=== PATIENT | female | born 1955 | race Caucasian/White ===

== ENCOUNTER 2022-07-27 03:55 | Inpatient (IN) | payer MEDICARE, SELFPAY ==
[2022-07-27] VITALS (17 sets, daily range): BP systolic 102–146; BP diastolic 57–79; PULSE 75–115; RESP 14–24; TEMP 36.4–36.9; O2SAT 88–95
--- NOTE | 2022-07-27 04:10 | XRR_ITS ---
PROCEDURE INFORMATION: Exam: XR Chest Exam date and time: 07/27/2022 4:34 AM Age: 66 years old Clinical indication: Shortness of breath; Additional info: SOB TECHNIQUE: Imaging protocol: Radiologic exam of the chest. Views: 1 view. COMPARISON: No relevant prior studies available. FINDINGS: Lungs: There is a background of emphysema and mild pulmonary fibrosis. Pleural spaces: Unremarkable. No pleural effusion. No pneumothorax. Heart/Mediastinum: Unremarkable. No cardiomegaly. Bones/joints: Unremarkable. XR/XR chest 1V portable [id number] IMPRESSION: 1. Background of emphysema pulmonary fibrosis. 2. There are no acute chest findings.
[2022-07-27] MEDS: ipratropium-albuterol 3 mL Neb INHALATION ×4 (04:15→19:33)
[2022-07-27 04:31] LABS: ABG PCO2 52.7 mmHg (35-45); ABG PH Result 7.36 (7.35-7.45); Arterial Blood Gas Hematocrit 47.8 % (37-47); Base Excess ABG 2.8 mmol/L (-2.0-2.0); Blood Gas Sample Site Brachial, right; Blood Gas Sample Type Arterial; HCO3 ABG 29.7 mmol/L (22-26); Oxygen Device NC; PO2 ABG 61.8 mmHg (80.0-100.0)
--- NOTE | 2022-07-27 04:43 | ECG_ITS ---
[facility] Test Date: 2022-07-27 Pat Name: Elisha Hardy Department: Room: Gender: Female Court Worker: : 1955 Requested By: Martinez Ansari Order Number: [id number] Reading MD: NELLIE CUEVA Measurements Intervals [place] Rate: 100 P: 79 PA: 153 QRS: 81 QRSD: 76 T: 64 QT: 328 QTc: 425 Interpretive Statements SINUS TACHYCARDIA POSSIBLE LEFT ATRIAL ENLARGEMENT [-0.1mV P-WAVE IN V1/V2] MINIMAL ST DEPRESSION [0.025+ mV ST DEPRESSION] ABNORMAL RHYTHM ECG No previous ECG available for comparison Electronically Signed On 07-28-2022 3:07:38 CDT by NELLIE CUEVA [id number]
[2022-07-27 04:45] LABS: Basophils % 0.6 %; Eosinophils # 0.3 10^3/uL (0.0-0.8); Eosinophils % 3.7 %; Hematocrit 46.6 % (37.0-47.0); Hemoglobin 15.1 g/dL (11.5-15.3); Lymphocytes % 15.2 %; Mean Corpuscular HGB Conc 32.4 g/dL (30.0-36.0); Mean Corpuscular Hemoglobin 31.3 pg (28.0-34.0); Mean Corpuscular Volume 96.5 fl (81-99); Mean Platelet Volume 10.4 fL (7.4-10.4); Monocytes # 0.3 10^3/uL (0.2-0.9); Monocytes % 3.9 %; Neutrophils # 5.22 10^3/uL (1.8-7.7); Neutrophils % 76.3 %; Nucleated Red Blood Cells % 0 %; Platelet Count 253 10^3/cmm (130-400); Red Blood Count 4.83 10^6/uL (4.1-5.3); White Blood Count 6.8 10^3/uL (4.0-10.0)
--- NOTE | 2022-07-27 04:51 | W.ED.SOB ---
HPI - SOB/Dyspnea General: Chief Complaint: Shortness of Breath/Dyspnea Stated Complaint: SOB Time Seen by Provider: 07/27/22 03:59 Source: patient History of Present Illness: HPI Narrative: 66-year-old female smoker. She says she quit a week ago. She presents with wheezing and shortness of breath, acutely worsening this morning. She says that she has not been able to walk across her home to the kitchen for about a month because of shortness of breath. She was struggling for air at home called an ambulance. MD elicited complaint: shortness of breath and cough Pertinent past history: COPD Onset (ago): hour(s) Context: recent illness, occurred during exertion and choking/aspiration Exacerbating factors: lying flat and exertion Relieving factors: oxygen and bronchodilators Known history of: COPD Associated symptoms: Reports chest congestion, chest pain and cough; Deny abdominal pain or nausea Treatment prior to arrival: oxygen and bronchodilator Review of Systems Card: Reports: chest pain Resp: Reports: chest congestion GI: Denies: abdominal pain or nausea PFSH ED PFSH: Medical History (Updated 07/27/22 @ 05:57 by Quinn Quiñones MD) Anxiety Cardiac arrhythmia Hypoglycemia Surgical History (Updated 07/27/22 @ 05:57 by Quinn Quiñones MD) Hx of tonsillectomy Hx of tubal ligation Physical Exam Const: GENERAL APPEARANCE: anxious, ill appearing (Mildly) and frail appearing (Mildly) HENMT: COMMON NORMALS: normocephalic, atraumatic and Normal external nose present HEAD & SCALP: normocephalic and atraumatic FACE & SINUS: normal facial exam and face symmetric NOSE: Normal external nose present Eye: COMMON NORMALS: Equal, round and reactive pupils present and EOMs intact bilaterally PUPIL: Yes Equal, round and reactive pupils present Neck/C-Spine: GENERAL: Yes trachea midline Chest: CHEST: Yes Symmetrical chest wall rise Resp: COMMON NORMALS: No retractions, No use of accessory muscles and clear to auscultation bilaterally AUSCULTATION: clear to auscultation bilaterally Cardio: COMMON NORMALS: regular rate and regular rhythm RATE: regular rate RHYTHM: regular rhythm GI: COMMON NORMALS: Normal to inspection, nondistended, normoactive bowel sounds present Extremity: COMMON NORMALS: no pedal edema Neuro: SHIV COMA SCALE: document GCS findings Mingus coma scale eye opening: Spontaneous Shiv coma scale verbal response: Orientated Mingus coma scale motor response: Obey commands Shiv coma scale total score: 15 SENSORY EXAM: Yes extremities (intact) Psych: COMMON NORMALS: speech normal SPEECH: Yes normal speech Skin: COMMON NORMALS: no rashes or lesions noted GENERAL SKIN EXAM: no rashes or lesions noted Course Consultations: Consultation #1: demarco Vital Signs: Vital signs: Vital Signs Temperature 97.5 F L 07/27/22 03:56 Pulse Rate 87 07/27/22 05:30 Respiratory Rate 16 07/27/22 05:30 Blood Pressure 110/65 07/27/22 05:30 Pulse Oximetry 92 07/27/22 05:30 Oxygen Delivery Me thod 07/27/22 04:21 Oxygen Flow Rate 2 07/27/22 04:21 MDM - SOB/Dyspnea Medical Decision Making Patient is somewhat improved after breathing treatment, however on 2 L still satting only 90 to 91%. Blood gas on 2 L shows a PO2 60 with CO2 retention and PCO2 of 53. CBC is normal. pH is 7.36 Chest x-ray is negative for infiltrate Patient had 125 mg of Solu-Medrol in route in the ambulance. She had also received a breathing treatment. She has received DuoNeb here. She still having trouble. She is oxygen dependent on 2 L to get her above 88%. I think she would benefit from observation with continue steroids and nebulizer treatments. Her PCO2 is elevated. Lab Data 07/27/22 04:36 07/27/22 04:36 Labs/Radiology: Radiology Impressions Chest X-Ray 07/27/22 04:10 IMPRESSION: 1. Background of emphysema pulmonary fibrosis. 2. There are no acute chest findings. Laboratory Results WBC 6.8 10^3/uL (4.0-10.0) 07/27/22 04:36 RBC 4.83 10^6/uL (4.1-5.3) 07/27/22 04:36 Hgb 15.1 g/dL (11.5-15.3) 07/27/22 04:36 Hct 46.6 % (37.0-47.0) 07/27/22 04:36 MCV 96.5 fl (81-99) 07/27/22 04:36 MCH 31.3 pg (28.0-34.0) 07/27/22 04:36 MCHC 32.4 g/dL (30.0-36.0) 07/27/22 04:36 RDW 13.0 % (12.1-15.1) 07/27/22 04:36 Plt Count 253 10^3/cmm (130-400) 07/27/22 04:36 MPV 10.4 fL (7.4-10.4) 07/27/22 04:36 Neut % (Auto) 76.3 % 07/27/22 04:36 Lymph % (Auto) 15.2 % 07/27/22 04:36 [place] % (Auto) 3.9 % 07/27/22 04:36 Eos % (Auto) 3.7 % 07/27/22 04:36 Baso % (Auto) 0.6 % 07/27/22 04:36 Neut # (Auto) 5.22 10^3/uL (1.8-7.7) 07/27/22 04:36 Lymph # (Auto) 1.0 10^3/uL (0.8-4.8) 07/27/22 04:36 [place] # (Auto) 0.3 10^3/uL (0.2-0.9) 07/27/22 04:36 Eos # (Auto) 0.3 10^3/uL (0.0-0.8) 07/27/22 04:36 Baso # (Auto) 0.0 10^3/uL (0.0-0.1) 07/27/22 04:36 Nucleated RBC % (auto) 0 % 07/27/22 04:36 Nucleated RBCs # 0.0 /100WBC 07/27/22 04:36 Specimen Type Arterial 07/27/22 04:19 Sample Site Brachial, right 07/27/22 04:19 ABG pH 7.36 (7.35-7.45) 07/27/22 04:19 ABG pCO2 52.7 mmHg (35-45) H 07/27/22 04:19 ABG pO2 61.8 mmHg (80.0-100.0) L 07/27/22 04:19 ABG HCO3 29.7 mmol/L (22-26) H 07/27/22 04:19 ABG Base Excess 2.8 mmol/L (-2.0-2.0) H 07/27/22 04:19 Henry Test N/a 07/27/22 04:19 Hematocrit 47.8 % (37-47) H 07/27/22 04:19 O2 Delivery Device Nc 07/27/22 04:19 O2 Liters/Min 2.0 % 07/27/22 04:19 FiO2 28.0 % 07/27/22 04:19 Transfer Station Operator ID Alewe 07/27/22 04:19 Sodium 133 mmol/L (136-145) L 07/27/22 04:36 Potassium 4.5 mmol/L (3.5-5.1) 07/27/22 04:36 Chloride 97 mmol/L (98-107) L 07/27/22 04:36 Carbon Dioxide 26 mmol/L (22-29) 07/27/22 04:36 Anion Gap 14.5 (5-19) 07/27/22 04:36 BUN 10 mg/dL (8-23) 07/27/22 04:36 Creatinine 0.5 mg/dL (0.5-0.9) 07/27/22 04:36 GFR Calculation 123.4 mL/min (90-130) 07/27/22 04:36 Glucose 121 mg/dL (65-115) H 07/27/22 04:36 Calculated Osmolality 276 mOsm/kg (285-295) L 07/27/22 04:36 Lactic Acid 0.9 mmol/L (0.5-2.2) 07/27/22 04:36 Calcium 8.9 mg/dL (8.5-10.5) 07/27/22 04:36 Magnesium 1.7 mg/dL (1.7-2.3) 07/27/22 04:36 Total Bilirubin 0.4 mg/dL (0.15-1.2) 07/27/22 04:36 AST 17 U/L (0-32) 07/27/22 04:36 ALT 13 U/L (0-33) 07/27/22 04:36 Alkaline Phosphatase 52 U/L (35-105) 07/27/22 04:36 Troponin T Baseline 7 ng/L (0-10) 07/27/22 04:36 C-Reactive Protein 20.6 mg/L (0.0-4.9) H 07/27/22 04:36 NT-Pro-B Natriuret Pep 66 pg/mL (0-125) 07/27/22 04:36 Total Protein 6.2 g/dL (6.6-8.7) L 07/27/22 04:36 Albumin 3.9 g/dL (3.5-5.2) 07/27/22 04:36 Globulin 2.3 g/dL (1.3-4.6) 07/27/22 04:36 Discharge Plan Discharge Patient Disposition: Placed in Observation Clinical Impression: Acute exacerbation of chronic obstructive airways disease, Respiratory failure with hypoxia and hypercapnia Coding Level of Care Code ED Prep Person for Kushal Flores
[2022-07-27 05:11] LABS: Troponin(5th) Baseline 7 ng/L (0-10)
[2022-07-27 05:12] LABS: Lactic Sepsis W/Reflex 0.9 mmol/L (0.5-2.2)
[2022-07-27 05:21] LABS: Alanine Aminotransferase 13 U/L (0-33); Albumin Level 3.9 g/dL (3.5-5.2); Alkaline Phosphatase 52 U/L (35-105); Aspartate Amino Transferase 17 U/L (0-32); Blood Urea Nitrogen 10 mg/dL (8-23); C Reactive Protein 20.6 mg/L (0.0-4.9); Calcium 8.9 mg/dL (8.5-10.5); Carbon Dioxide 26 mmol/L (22-29); Chloride 97 mmol/L (98-107); Globulin 2.3 g/dL (1.3-4.6); Glomerular Filtration Rate 123.4 mL/min (90-130); Glucose 121 mg/dL (65-115); Magnesium 1.7 mg/dL (1.7-2.3); NT Pro B Type Natriuretic Pept 66 pg/mL (0-125); Osmolality Calculated 276 mOsm/kg (285-295); Sodium 133 mmol/L (136-145); Total Bilirubin 0.4 mg/dL (0.15-1.2); Total Protein 6.2 g/dL (6.6-8.7)
[2022-07-27 05:22] LABS: Anion Gap 14.5 (5-19); Potassium 4.5 mmol/L (3.5-5.1)
--- NOTE | 2022-07-27 06:19 | P.HP_ITS ---
Providers/Chief Complaint Admitting Physician: Quinn Quiñones Chief Complaint: SOB History of Present Illness Pleasant 66-year-old lady with history of COPD, though possibly not formally diagnosed, cigarette smoker who was recently quit, HLD, anxiety presented to the hospital for evaluation due to about a weeks worth of worsening dyspnea especially with exertion, she thought possibly because of quitting smoking, but reports has had a few episodes of fever, chills, malaise, cough productive of thick white sputum which is difficult to bring up. Denies chest pain or pressure. At home found to have dyspnea, tachypnea, diminished air entry, anxiety by EMS, received Solu-Medrol dose in route. In ER received breathing treatment. On room air saturations were found to be 86%, had to be started on 2 L nasal cannula oxygen to maintain low 90s. Has not been previously on oxygen. ABG 7.36/50.7/61.8/29.7 on 2 L. Baseline troponin normal, NT proBNP only 66. Respiratory viral panel has been obtained and pending. Chest x-ray with background emphysema and mild pulmonary fibrosis, no acute findings. Review of Systems Const: Reports: fever(s), chills and malaise ENMT: Denies: throat pain, oral sores or ear or mastoid pain Card: Reports: dyspnea on exertion; Denies: chest pain, edema or pre-syncope Resp: Reports: dyspnea and productive cough; Denies: change in phlegm color or hemoptysis GI: Denies: abdominal pain, nausea, vomiting, diarrhea, constipation, hematochezia or melena : Denies: flank pain, urinary frequency or hematuria Musc: Denies: back pain, joint swelling or joint redness Skin/Breast: Denies: rash or new lesions Neuro: Denies: headache(s), numbness in extremities, weakness in extremities, dizziness, confusion or seizure-like activity Medications/Allergies Home Medications Medication Instructions Recorded Confirmed Last Taken Type No Known Home Medications 07/27/22 07/27/22 Unknown History Allergies Allergy/AdvReac Type Severity Reaction Status Date / Time aspirin Allergy Unknown ALGY-Hives Verified 07/27/22 06:24 PFSH Acute PFSH: Medical History Anxiety Cardiac arrhythmia HLD (hyperlipidemia) Hypoglycemia Surgical History Hx of tonsillectomy Hx of tubal ligation Family History Other CAD (coronary artery disease) Cancer Emphysema lung Hypertension Social History Smoking and tobacco status: current every day smoker cigarettes Quit status (tobacco): has quit using tobacco Lives independently: Yes Household members: none Marital status: Vitals/I&O/Wt Last Vital Signs Temp 97.5 F L 07/27/22 03:56 Pulse 75 07/27/22 06:02 Resp 16 07/27/22 06:02 BP 115/68 07/27/22 06:02 Pulse Ox 92 07/27/22 06:02 O2 Del Method 07/27/22 04:21 O2 Flow Rate 2 07/27/22 04:21 Weight last 48 hrs Weight 47.627 kg Physical Exam Const: COMMON NORMALS: patient oriented x3 and alert GENERAL APPEARANCE: cooperative ORIENTATION/CONSCIOUSNESS: Yes awake HENMT: COMMON NORMALS: oropharynx normal Neck/C-Spine: COMMON NORMALS: no JVD Resp: COMMON NORMALS: normal respiratory effort and clear to auscultation bilaterally AUSCULTATION: wheezes (Mild) and diminished lung sounds Cardio: COMMON NORMALS: no JVD, regular rhythm, S1 normal heart sound present, S2 normal heart sound present and No murmurs present (Cardio) RATE: t achycardic RHYTHM: regular rhythm HEART SOUNDS: S1 normal heart sound present and S2 normal heart sound present GI: COMMON NORMALS: Normal to inspection, nondistended, normoactive bowel sounds present, Soft to palpation and non-tender PALPATION: Yes Soft to palpation Extremity: COMMON NORMALS: no joint enlargement and no pedal edema Neuro: COMMON NORMALS: patient oriented x3 and moves all extremities SENSORIUM/ORIENTATION: Yes alert Skin: COMMON NORMALS: no rashes or lesions noted GENERAL SKIN EXAM: no rashes or lesions noted Data 07/27/22 04:36 07/27/22 04:36 Micro: Microbiology 07/27/22 04:36 Blood Culture - Preliminary Blood SPECIMEN COLLECTED A&P Assessment and plan (1) Respiratory failure with hypoxia and hypercapnia: Saturation 86% on room air. Appears to be secondary to exacerbation of COPD, possibly acute viral illness due to fevers, chills, malaise. Noted respiratory viral pending, please follow-up. Oxygen support, wean down as tolerating. RT to assess and treat. Treat COPD exacerbation as below. Home O2 eval prior to discharge. Additionally noted to possibly mild pulmonary fibrosis on review of chest x-ray. Consider follow-up PFT after discharge, follow-up with pulmonology. Severe exertional dyspnea. BNP noted only 66. Troponin noted normal, follow-up troponin series. (2) Acute exacerbation of chronic obstructive airways disease: Severe exacerbation of COPD with dyspnea, productive cough with purulent appearing sputum, hypoxia. Diminished air entry, wheezing on exam. Mucinex. Flutter valve. Plan Anxiety: Xanax as needed while acutely ill with respiratory failure. Recently quit smoking: Continue to encourage abstinence. Mild hyponatremia: Follow-up chemistry requested. Mild hyperglycemia: Follow-up glucose. Follow-up with PCP. Does not have history of diabetes. Requested home medications to be listed. Please reconcile once available. Discussed with ER physician. Reviewed ER documentation, prior cardiology note in old EMR. Attestations Medical Necessity Statement*: Admission of over 2 midnights anticipated for assessment management of acute respiratory failure, severe COPD exacerbation. Diagnoses Respiratory failure with hypoxia and hypercapnia J96.91; J96.92 Acute exacerbation of chronic obstructive airways disease J44.1
[2022-07-27 06:32] LABS: Adenovirus Not Detected (NOT DETECT); Chlamydia Pneumoniae Not Detected (NOT DETECT); Coronavirus 229E,HKU1,NL63,OC4 Not Detected (NOT DETECT); Human Metapneumovirus Not Detected (NOT DETECT); Human Rhinovirus/Enterovirus Not Detected (NOT DETECT); Influenza A Not Detected (NOT DETECT); Influenza A H1 Not Detected (NOT DETECT); Influenza A H1-2009 Not Detected (NOT DETECT); Influenza A H3 Not Detected (NOT DETECT); Influenza B Not Detected (NOT DETECT); Mycoplasma Pneumoniae Not Detected (NOT DETECT); Parainfluenza Virus Type 1 Not Detected (NOT DETECT); Parainfluenza Virus Type 2 Not Detected (NOT DETECT); Parainfluenza Virus Type 3 Not Detected (NOT DETECT); Parainfluenza Virus Type 4 Not Detected (NOT DETECT); Respiratory Syncytial Virus A Not Detected (NOT DETECT); Respiratory Syncytial Virus B Not Detected (NOT DETECT); SARS-COV-2 Not Detected (NOT DETECT)
--- NOTE | 2022-07-27 06:47 | ECG_ITS ---
[facility] Test Date: 2022-07-27 Pat Name: Elisha Hardy Department: Room: 269 Gender: Female Insurance Assistant: : 1955 Requested By: Martinez Ansari Order Number: [id number] Maria Isabel MD: NELLIE CUEVA Measurements Intervals [place] Rate: 81 P: 77 MN: 154 QRS: 80 QRSD: 69 T: 73 QT: 349 QTc: 407 Interpretive Statements SINUS RHYTHM POSSIBLE LEFT ATRIAL ENLARGEMENT [-0.1mV P-WAVE IN V1/V2] SEPTAL MYOCARDIAL INFARCTION , OF INDETERMINATE AGE [40+ ms Q WAVE IN V1/V2] Compared to ECG 07/27/2022 04:43:52 Myocardial infarct finding now present Sinus tachycardia no longer present ST (T wave) deviation no longer present Electronically Signed On 07-28-2022 3:08:27 CDT by NELLIE CUEVA [id number]
[2022-07-27] MEDS: heparin 5,000 unit/mL INJ 1 mL 5000 UNIT SUBCUT ×2 (08:28→17:44)
[2022-07-27] MEDS: guaiFENesin 600 mg Tablet PO ×2 (08:29→17:45)
[2022-07-27] MEDS: pantoprazole DR 40 mg Tablet PO (08:29)
--- NOTE | 2022-07-27 10:07 | ECG_ITS ---
[facility] Test Date: 2022-07-27 Pat Name: Elisha Hardy Department: Room: 269 Gender: Female Camera Maker: : 1955 Requested By: Martinez Ansari Order Number: [id number] Maria Isabel MD: NELLIE CUEVA Measurements Intervals [place] Rate: 99 P: 70 VT: 152 QRS: 75 QRSD: 82 T: 66 QT: 359 QTc: 461 Interpretive Statements SINUS RHYTHM POSSIBLE LEFT ATRIAL ENLARGEMENT [-0.1mV P-WAVE IN V1/V2] Compared to ECG 07/27/2022 06:47:18 Myocardial infarct finding no longer present Electronically Signed On 07-28-2022 3:08:22 CDT by NELLIE CUEVA [id number]
[2022-07-27] MEDS: sodium chloride 0.9% 500 ML IV (10:36)
--- NOTE | 2022-07-27 10:46 | PC.NURSE ---
PT C/O WEAKNESS AND SOB. PULSE OX AT 86% ON RA. PT PLACED ON 3.5L/NC SATS AT 88-90%.
--- NOTE | 2022-07-27 18:49 | PC.NURSE ---
Bedside report with KIANA Rodriguez.
--- NOTE | 2022-07-27 18:53 | PC.NURSE ---
is asking for something to help her sleep tonight. She said she is wanting something light because she normally doesn't take medications. Dr. Quiñones notified.
[2022-07-27] MEDS: trazodone 50 mg Tablet 25 MG PO (22:16)
[2022-07-28] VITALS (13 sets, daily range): BP systolic 107–129; BP diastolic 60–69; PULSE 82–109; RESP 12–24; TEMP 36.4–36.8; O2SAT 87–97
[2022-07-28] MEDS: ipratropium-albuterol 3 mL Neb INHALATION ×2 (02:34→08:29)
[2022-07-28 05:16] LABS: Eosinophils % 0.6 %; Hematocrit 44.3 % (37.0-47.0); Hemoglobin 14.4 g/dL (11.5-15.3); Lymphocytes # 0.6 10^3/uL (0.8-4.8); Lymphocytes % 9.3 %; Mean Corpuscular HGB Conc 32.5 g/dL (30.0-36.0); Mean Corpuscular Hemoglobin 30.8 pg (28.0-34.0); Mean Corpuscular Volume 94.9 fl (81-99); Mean Platelet Volume 10.7 fL (7.4-10.4); Monocytes # 0.2 10^3/uL (0.2-0.9); Monocytes % 3.3 %; Neutrophils # 5.83 10^3/uL (1.8-7.7); Neutrophils % 86.5 %; Nucleated Red Blood Cells % 0 %; Platelet Count 246 10^3/cmm (130-400); Red Blood Count 4.67 10^6/uL (4.1-5.3); White Blood Count 6.7 10^3/uL (4.0-10.0)
[2022-07-28 05:34] LABS: Anion Gap 10.9 (5-19); Blood Urea Nitrogen 14 mg/dL (8-23); Calcium 9.4 mg/dL (8.5-10.5); Carbon Dioxide 32 mmol/L (22-29); Chloride 101 mmol/L (98-107); Glomerular Filtration Rate 123.4 mL/min (90-130); Glucose 163 mg/dL (65-115); Osmolality Calculated 292 mOsm/kg (285-295); Potassium 4.9 mmol/L (3.5-5.1); Sodium 139 mmol/L (136-145)
[2022-07-28] MEDS: heparin 5,000 unit/mL INJ 1 mL 5000 UNIT SUBCUT ×2 (06:09→18:42)
[2022-07-28] MEDS: pantoprazole DR 40 mg Tablet PO (09:45)
[2022-07-28] MEDS: guaiFENesin 600 mg Tablet PO ×2 (09:46→18:42)
--- NOTE | 2022-07-28 10:43 | PC.CHAP ---
Pastoral Care Encounter/Spiritual Assessment Type of Contact [] Declined fundraising coordinator visit [] Patient/Family/Request visit [] Outpatient visit [] Follow-up visit [] Physician referral [] Code/Alert [x] Routine visit [] Staff referral [] Actively dying [] Patient sleeping [] Family support [] [] Out of room [] Palliative care [] [] Receiving care in room [] Pre-surgical visit [] Trauma [] Long length of stay [] ICU visit [] Other: Relational/Emotional Strength [x] Patient feels connected with others/family/visitors/staff [] Distress [] Loneliness/isolation [] Abandonment Spirituality of Patient [x] Person of Margie [] Attends Congregation of their Margie [x] Believes in Prayer [x] Reads Bible or Confucianism materials [] There are Spiritual issues to be addressed Casting Machine Set Up Operator Interventions [x] Prayer [x] Active listening [] Non-anxious presence [x] Spiritual/emotional support [] Crisis/trauma care [] Spiritual counseling [] Bereavement support [] Provided bereavement packet [] Provided Bible/devotional materials [] Provided toy/stuffed animal, coloring book to patient or family member [] Provided Communion [] Anointing/[place] [] Salvation [x] Completed spiritual assessment [] Other: Impact on Illness or Injury [] Angry [] Fearful [] Anxious [] Often cries [] Exhaustion [] Unable to work [] Unable to attend mormon [] Unable to walk/stand [] Unable to read [] Unable to drive [] Unable to eat/drink [] Unable to sleep [] Unable to be with family [] Patient intubated [] Other: Summary Time spent with patient 5 min
--- NOTE | 2022-07-28 10:49 | USCV_ITS ---
Elisha Hardy Age: 66 Gender: F : 1955 Exam Date: 07/28/2022 11:26 Ordering Phys: Lucas Malloy MD Technologist: Rip Huerta [place] [facility] [place] [facility] [place] Indication: sob, possible hypertension BP: 107 / 60 HR: 105 Rhythm: Sinus Technical Quality: Technically difficult study MEASUREMENTS (Male / Female) Normal Values 2D ECHO LV Diastolic Diameter PLAX 4.1 cm 4.2 - 5.9 / 3.9 - 5.3 cm LV Systolic Diameter PLAX 2.6 cm IVS Diastolic Thickness 0.7 cm 0.6 - 1.0 / 0.6 - 0.9 cm IVS Systolic Thickness 1.3 cm LVPW Diastolic Thickness 1.3 cm 0.6 - 1.0 / 0.6 - 0.9 cm LVPW Systolic Thickness 1.3 cm LVOT Diameter 2.0 cm LV Ejection Fraction 2D Teich 67.4 % LA Diameter 2.7 cm Aorta at Sinotubular Diameter 2.6 cm IVC Diameter 1.4 cm M-MODE Aortic Annulus Diameter 2.7 cm LA Ao Ratio MM 1.1 MV E Point Septal Separation 0.6 cm DOPPLER Right Atrial Pressure 3.0 mmHg PV Peak Velocity 89.0 cm/s RV Acceleration Time 0.1 s RV Ejection Time 0.2 s RV AcT/ET 0.3 FINDINGS Left Ventricle Possibly normal LV size ejection fraction. Segmental wall motion analysis difficult. No gross abnormalities noted. Only subcostal views were obtained. Right Ventricle Possibly normal size ejection fraction. Right Atrium Right atrium not well visualized. Left Atrium Possibly of normal size Mitral Valve No gross abnormalities noted Aortic Valve Thickened aortic valve. Tricuspid Valve No gross abnormalities noted Pulmonic Valve Pulmonic valve not well visualized. Pericardium No pericardial effusion. Aorta Aorta not well visualized. IVC Normal inferior vena cava. CONCLUSIONS Possibly normal LV size ejection fraction. Segmental wall motion analysis difficult. No gross abnormalities noted. Thickened aortic valve. There is no pericardial effusion. There are no intracardiac masses. Technically difficult study because of the poor ultrasonic window. Only subcostal views were obtained Dr Lloyd Gibbs MD [facility] (Electronically Signed) Final Date: 28 July 2022 18:46 S
[2022-07-28] MEDS: levoFLOXacin 750 mg Tablet PO (10:56)
[2022-07-28 11:20] LABS: Add Urine Microscopic? NO; Charge for UA Resulting for Rev
[2022-07-28 11:25] LABS: D Dimer 0.42 ug/mIFEU (0-0.59)
[2022-07-28 11:27] LABS: Bilirubin Urine Neg (Negative); Blood Urine Neg (Negative); Glucose Urine UA 2+ (Normal); Ketones Urine Negative (Negative); Leukocyte Esterase Urine Negative (Negative); Nitrate Urine Negative (Negative); Protein Urine Neg (Negative); Urine Appearance Clear (CLEAR); Urine Color Yellow (Yellow); Urobilinogen Urine Norm (Negative); pH Urine 6 (5-7)
[2022-07-28 11:27] LABS: Thyroid Stimulating Hormone 0.84 uIU/mL (0.27-4.20)
[2022-07-28 11:35] LABS: Procalcitonin 0.02 ng/mL (0-0.5); Vitamin B12 373 pg/mL (232-1245)
[2022-07-28 11:37] LABS: Folate Level 7.8 ng/mL (4.8-37.3)
--- NOTE | 2022-07-28 13:37 | P.PN_ITS ---
Subjective Subjective: Hospital course, labs appreciated. On examination patient sitting comfortably in bed. States he used to smoke regularly the last 1 week and did not have any difficulty in breathing but since stopping her smoking the breathing has been getting worse. She does state on baseline she did get out of breath on minimal exertion previously as well. Denies any nausea, vomiting, headache. Has remained hemodynamically stable and afebrile. Currently on 3 L saturating more than 92%. States goal is to get home without oxygen. Does not want to remain on long-term oxygen. Vitals/I&O/Wt Last Vital Signs Temp 97.6 F 07/28/22 11:48 Pulse 105 H 07/28/22 11:48 Resp 24 H 07/28/22 11:48 BP 110/69 07/28/22 11:48 Pulse Ox 93 07/28/22 11:48 O2 Del Method 07/28/22 11:48 O2 Flow Rate 3 07/28/22 11:48 07/27/22 07/28/22 07/28/22 22:59 06:59 14:59 Intake Total 740 / 1480 440 / 1920 100 / 100 Output Total 1025 / 1025 Balance 740 / 1480 -585 / 895 100 / 100 Weight last 48 hrs Weight 47.945 kg Weight 48.353 kg Weight 47.627 kg Physical Exam Const: COMMON NORMALS: patient oriented x3 and alert GENERAL APPEARANCE: cooperative ORIENTATION/CONSCIOUSNESS: Yes awake HENMT: COMMON NORMALS: oropharynx normal Neck/C-Spine: COMMON NORMALS: no JVD Resp: COMMON NORMALS: normal respiratory effort and clear to auscultation bilaterally AUSCULTATION: clear to auscultation bilaterally, wheezes (Mild) and diminished lung sounds Cardio: COMMON NORMALS: no JVD, regular rhythm, S1 normal heart sound present, S2 normal heart sound present and No murmurs present (Cardio) RATE: tachycardic RHYTHM: regular rhythm HEART SOUNDS: S1 normal heart sound present and S2 normal heart sound present GI: COMMON NORMALS: Normal to inspection, nondistended, normoactive bowel sounds present, Soft to palpation and non-tender PALPATION: Yes Soft to palpation Extremity: COMMON NORMALS: no joint enlargement and no pedal edema Neuro: COMMON NORMALS: patient oriented x3 and moves all extremities SENSORIUM/ORIENTATION: Yes alert Skin: COMMON NORMALS: no rashes or lesions noted GENERAL SKIN EXAM: no rashes or lesions noted Data 07/28/22 04:38 07/28/22 04:38 Micro: Microbiology 07/27/22 19:52 Gram Stain - Final Sputum - Expectorated Sputum 07/27/22 04:36 Blood Culture - Preliminary Blood NEGATIVE TO DATE A&P Assessment and plan (1) Respiratory failure with hypoxia and hypercapnia: Most likely COPD exacerbation. Respiratory viral panel negative. Oxygen supplementation keeping saturation over 90%. Continue with ipratropium, Xopenex every 6 hourly. Add budesonide twice daily. Change Solu-Medrol to 40 mg every 12 hourly. Most likely patient will need to be discharged on slow steroid taper. Check MRSA swab. Sputum culture awaited. Start empirically on oral Levaquin for now. Check echocardiogram to rule out pulmonary hypertension. Will add Lasix accordingly. (2) Acute exacerbation of chronic obstructive airways disease: Severe exacerbation of COPD with dyspnea, productive cough with purulent appearing sputum, hypoxia. Diminished air entry, wheezing on exam. Mucinex. Aggressive pulmonary toilet Plan Anxiety: Xanax as needed while acutely ill with respiratory failure. Recently quit smoking: Continue to encourage abstinence. Offered patient nicotine patch. Mild hyponatremia: Resolved. Mild hyperglycemia: Check A1c. No history of diabetes in the past. Requested home medications to be listed. Please reconcile once available. Analgesia: Tylenol as needed Glycemic control: Not needed. Check A1c. Nutrition: Cardiac diet CODE STATUS: Full code PUD prophylaxis: Protonix DVT prophylaxis: Heparin 5000 every 12 hourly. Discharge planning: Home with caregiver on slow prolonged steroid taper in next 48 hours once patient becomes medically stable. Continue with care at [facility] [place] This documentation was created by [employer] cement grinding mill operator software. Every effort was made to ensure accuracy of cement grinding mill operator. Any obvious errors or omissions should be clarified with the author of the document. Attestations Medical Necessity Statement*: Requires further hospitalization for management of hypoxia in setting of COPD exacerbation Diagnoses Respiratory failure with hypoxia and hypercapnia J96.91; J96.92 Acute exacerbation of chronic obstructive airways disease J44.1
[2022-07-28] MEDS: ipratropium 0.5 mg/2.5 mL Neb INHALATION ×2 (15:48→20:10)
[2022-07-28] MEDS: levalbuterol 0.63 mg/3 mL Neb INHALATION ×2 (15:48→20:10)
[2022-07-28] MEDS: budesonide 0.5 mg/2 mL Neb INHALATION (20:10)
[2022-07-29] MEDS: trazodone 50 mg Tablet 25 MG PO (00:18)
[2022-07-29] MEDS: levalbuterol 0.63 mg/3 mL Neb INHALATION ×3 (03:24→14:06)
[2022-07-29 03:25] VITALS: PULSE 106; RESP 18; O2SAT 93
[2022-07-29] MEDS: ipratropium 0.5 mg/2.5 mL Neb INHALATION ×3 (03:25→14:06)
[2022-07-29 03:41] VITALS: BP 123/68; PULSE 102; RESP 16; TEMP 36.6; O2SAT 93
[2022-07-29 05:43] LABS: Hematocrit 44.1 % (37.0-47.0); Hemoglobin 14.5 g/dL (11.5-15.3); Lymphocytes # 0.8 10^3/uL (0.8-4.8); Lymphocytes % 10.2 %; Mean Corpuscular HGB Conc 32.9 g/dL (30.0-36.0); Mean Corpuscular Hemoglobin 30.8 pg (28.0-34.0); Mean Corpuscular Volume 93.6 fl (81-99); Mean Platelet Volume 10.6 fL (7.4-10.4); Monocytes # 0.3 10^3/uL (0.2-0.9); Monocytes % 3.5 %; Neutrophils # 6.63 10^3/uL (1.8-7.7); Nucleated Red Blood Cells % 0 %; Platelet Count 278 10^3/cmm (130-400); Red Blood Count 4.71 10^6/uL (4.1-5.3); White Blood Count 7.7 10^3/uL (4.0-10.0)
[2022-07-29] MEDS: levoFLOXacin 750 mg Tablet PO (06:03)
[2022-07-29] MEDS: heparin 5,000 unit/mL INJ 1 mL 5000 UNIT SUBCUT (06:04)
[2022-07-29 06:05] LABS: Blood Urea Nitrogen 15 mg/dL (8-23); Calcium 9.7 mg/dL (8.5-10.5); Carbon Dioxide 32 mmol/L (22-29); Chloride 100 mmol/L (98-107); Chol HDL Ratio 3.51 mg/dL (0.0-4.40); Cholesterol 256 mg/dL (0-200); Glomerular Filtration Rate 71.8 mL/min (90-130); Glucose 141 mg/dL (65-115); HDL Cholesterol 73 mg/dL (60-100); LDL Cholesterol Calculated 165 mg/dL (50-129); Osmolality Calculated 293 mOsm/kg (285-295); Sodium 140 mmol/L (136-145); Triglycerides 90 mg/dL (0-150); VLDL Cholestrol Calculation 18 mg/dL (0-30)
[2022-07-29 06:20] LABS: Estmated Average Glucose 114; Hemoglobin A1C 5.6 % (4.0-6.0)
[2022-07-29 08:00] VITALS: BP 117/70; PULSE 101; PULSE 82; RESP 17; RESP 22; TEMP 36.6; O2SAT 96
[2022-07-29] MEDS: budesonide 0.5 mg/2 mL Neb INHALATION (08:05)
[2022-07-29] MEDS: guaiFENesin 600 mg Tablet PO (08:48)
[2022-07-29] MEDS: pantoprazole DR 40 mg Tablet PO (08:48)
--- NOTE | 2022-07-29 10:27 | PM.DCS ---
Discharge Providers Date of Admission: 07/27/22 06:15 Date of Discharge: July 29, 2022 Attending Provider at Admission: Quinn Quiñones Attending Provider at Discharge: Lucas Malloy MD Diagnoses at Discharge Discharge Diagnosis (1) Respiratory failure with hypoxia and hypercapnia: Status: Acute (2) Acute exacerbation of chronic obstructive airways disease: Status: Acute Reason for Visit Reason for Visit: SOB Brief History: History as per HPI: Pleasant 66-year-old lady with history of COPD, though possibly not formally diagnosed, cigarette smoker who was recently quit, HLD, anxiety presented to the hospital for evaluation due to about a weeks worth of worsening dyspnea especially with exertion, she thought possibly because of quitting smoking, but reports has had a few episodes of fever, chills, malaise, cough productive of thick white sputum which is difficult to bring up.? Denies chest pain or pressure.? At home found to have dyspnea, tachypnea, diminished air entry, anxiety by EMS, received Solu-Medrol dose in route.? In ER received breathing treatment.? On room air saturations were found to be 86%, had to be started on 2 L nasal cannula oxygen to maintain low 90s.? Has not been previously on oxygen.? ABG 7.36/50.7/61.8/29.7 on 2 L. Baseline troponin normal, NT proBNP only 66.? Respiratory viral panel has been obtained and pending.? Chest x-ray with background emphysema and mild pulmonary fibrosis, no acute findings. Hospital Course Hospital Course Patient was under the hospital further evaluation and management of hypoxia and hypercapnic respiratory failure in setting of COPD exacerbation. She was started on IV steroids along with inhalation treatment. Chest imaging was concerning for possible mild pulmonary fibrosis. On admission she was found to be having mild hyponatremia which resolved with IV fluids she responded well to the treatment and shortness of breath has resolved her breathing is improving. Patient is saturating well on 1 L of oxygen on rest and requiring up to 3 L as per home O2 evaluation on exertion. She has been discharged hemodynamically stable condition on inhalation treatment and steroid taper. Physical Exam Const: COMMON NORMALS: patient oriented x3 and alert GENERAL APPEARANCE: cooperative ORIENTATION/CONSCIOUSNESS: Yes awake HENMT: COMMON NORMALS: oropharynx normal Neck/C-Spine: COMMON NORMALS: no JVD Resp: COMMON NORMALS: normal respiratory effort and clear to auscultation bilaterally AUSCULTATION: clear to auscultation bilaterally, wheezes (Mild) and diminished lung sounds Cardio: COMMON NORMALS: no JVD, regular rhythm, S1 normal heart sound present, S2 normal heart sound present and No murmurs present (Cardio) RATE: tachycardic RHYTHM: regular rhythm HEART SOUNDS: S1 normal heart sound present and S2 normal heart sound present GI: COMMON NORMALS: Normal to inspection, nondistended, normoactive bowel sounds present, Soft to palpation and non-tender PALPATION: Yes Soft to palpation Extremity: COMMON NORMALS: no joint enlargement and no pedal edema Neuro: COMMON NORMALS: patient oriented x3 and moves all extremities SENSORIUM/ORIENTATION: Yes alert Skin: COMMON NORMALS: no rashes or lesions noted GENERAL SKIN EXAM: no rashes or lesions noted Discharge Data Studies Completed and Pending Completed Studies During Hospitalization Category Date Time Status XR chest 1V portable [id number] Stat Exams 07/27/22 04:10 Completed CV. echo complete* [id number] Routine Ultrasound 07/28/22 10:49 Completed Pending at discharge Category Date Time Status Basic Metabolic Panel AM LABS Lab 07/30/22 04:00 Ordered Blood Culture Stat Lab 07/27/22 04:21 Results Complete Blood Count w/Auto AM LABS Lab 07/30/22 04:00 Ordered Sputum Culture and Gram Stain Routine Lab 07/27/22 19:52 Results Radiology Impressions Chest X-Ray 07/27/22 04:10 IMPRESSION: 1. Background of emphysema pulmonary fibrosis. 2. There are no acute chest findings. Echocardiogram: CONCLUSIONS ?Possibly normal LV size ejection fraction. ?Segmental wall motion analysis difficult.? No gross ?abnormalities noted.? ?Thickened aortic valve. ?There is no pericardial effusion. ?There are no intracardiac masses. ?Technically difficult study because of the poor ultrasonic ?window. ?Only subcostal views were obtained ?Dr Lloyd Gibbs MD [facility] ?(Electronically Signed) ?Final Date:? ? ? 28 July 2022 Laboratory Results WBC 7.7 10^3/uL (4.0-10.0) 07/29/22 05:15 RBC 4.71 10^6/uL (4.1-5.3) 07/29/22 05:15 Hgb 14.5 g/dL (11.5-15.3) 07/29/22 05:15 Hct 44.1 % (37.0-47.0) 07/29/22 05:15 MCV 93.6 fl (81-99) 07/29/22 05:15 MCH 30.8 pg (28.0-34.0) 07/29/22 05:15 MCHC 32.9 g/dL (30.0-36.0) 07/29/22 05:15 RDW 13.0 % (12.1-15.1) 07/29/22 05:15 Plt Count 278 10^3/cmm (130-400) 07/29/22 05:15 MPV 10.6 fL (7.4-10.4) H 07/29/22 05:15 Neut % (Auto) 86.0 % 07/29/22 05:15 Lymph % (Auto) 10.2 % 07/29/22 05:15 [place] % (Auto) 3.5 % 07/29/22 05:15 Eos % (Auto) 0.0 % 07/29/22 05:15 Baso % (Auto) 0.0 % 07/29/22 05:15 Neut # (Auto) 6.63 10^3/uL (1.8-7.7) 07/29/22 05:15 Lymph # (Auto) 0.8 10^3/uL (0.8-4.8) 07/29/22 05:15 [place] # (Auto) 0.3 10^3/uL (0.2-0.9) 07/29/22 05:15 Eos # (Auto) 0.0 10^3/uL (0.0-0.8) 07/29/22 05:15 Baso # (Auto) 0.0 10^3/uL (0.0-0.1) 07/29/22 05:15 Nucleated RBC % (auto) 0 % 07/29/22 05:15 Nucleated RBCs # 0.0 /100WBC 07/29/22 05:15 D-Dimer 0.42 ug/mIFEU (0-0.59) 07/28/22 11:02 Specimen Type Arterial 07/27/22 04:19 Sample Site Brachial, right 07/27/22 04:19 ABG pH 7.36 (7.35-7.45) 07/27/22 04:19 ABG pCO2 52.7 mmHg (35-45) H 07/27/22 04:19 ABG pO2 61.8 mmHg (80.0-100.0) L 07/27/22 04:19 ABG HCO3 29.7 mmol/L (22-26) H 07/27/22 04:19 ABG Base Excess 2.8 mmol/L (-2.0-2.0) H 07/27/22 04:19 Henry Test N/a 07/27/22 04:19 Hematocrit 47.8 % (37-47) H 07/27/22 04:19 O2 Delivery Device Nc 07/27/22 04:19 O2 Liters/Min 2.0 % 07/27/22 04:19 FiO2 28.0 % 07/27/22 04:19 Narrow Gauge Brakeman ID Anthony 07/27/22 04:19 Sodium 140 mmol/L (136-145) 07/29/22 05:15 Potassium 5.0 mmol/L (3.5-5.1) 07/29/22 05:15 Chloride 100 mmol/L (98-107) 07/29/22 05:15 Carbon Dioxide 32 mmol/L (22-29) H 07/29/22 05:15 Anion Gap 13.0 (5-19) 07/29/22 05:15 BUN 15 mg/dL (8-23) 07/29/22 05:15 Creatinine 0.8 mg/dL (0.5-0.9) 07/29/22 05:15 GFR Calculation 71.8 mL/min (90-130) L 07/29/22 05:15 Glucose 141 mg/dL (65-115) H 07/29/22 05:15 Estimat Average Glucose 114 07/29/22 05:15 Hemoglobin A1c 5.6 % (4.0-6.0) 07/29/22 05:15 Calculated Osmolality 293 mOsm/kg (285-295) 07/29/22 05:15 Lactic Acid 0.9 mmol/L (0.5-2.2) 07/27/22 04:36 Calcium 9.7 mg/dL (8.5-10.5) 07/29/22 05:15 Magnesium 1.7 mg/dL (1.7-2.3) 07/27/22 04:36 Total Bilirubin 0.4 mg/dL (0.15-1.2) 07/27/22 04:36 AST 17 U/L (0-32) 07/27/22 04:36 ALT 13 U/L (0-33) 07/27/22 04:36 Alkaline Phosphatase 52 U/L (35-105) 07/27/22 04:36 Troponin T Baseline 7 ng/L (0-10) 07/27/22 04:36 C-Reactive Protein 20.6 mg/L (0.0-4.9) H 07/27/22 04:36 NT-Pro-B Natriuret Pep 66 pg/mL (0-125) 07/27/22 04:36 Total Protein 6.2 g/dL (6.6-8.7) L 07/27/22 04:36 Albumin 3.9 g/dL (3.5-5.2) 07/27/22 04:36 Globulin 2.3 g/dL (1.3-4.6) 07/27/22 04:36 Triglycerides 90 mg/dL (0-150) 07/29/22 05:15 Cholesterol 256 mg/dL (0-200) H 07/29/22 05:15 LDL Cholesterol, Calc 165 mg/dL (50-129) H 07/29/22 05:15 Total VLDL Cholesterol 18 mg/dL (0-30) 07/29/22 05:15 HDL Cholesterol 73 mg/dL (60-100) 07/29/22 05:15 Cholesterol/HDL Ratio 3.51 mg/dL (0.0-4.40) 07/29/22 05:15 Vitamin B12 373 pg/mL (232-1245) 07/28/22 04:38 Folate 7.8 ng/mL (4.8-37.3) 07/28/22 04:38 Procalcitonin 0.02 ng/mL (0-0.5) 07/28/22 04:38 TSH 0.84 uIU/mL (0.27-4.20) 07/28/22 04:38 Urine Color Yellow (Yellow) 07/28/22 11:05 Urine Appearance Clear (CLEAR) 07/28/22 11:05 Urine pH 6 (5-7) 07/28/22 11:05 Ur Specific [place] 1.010 (1.005-1.030) 07/28/22 11:05 Urine Protein Neg (Negative) 07/28/22 11:05 Urine Glucose (UA) 2+ (Normal) H 07/28/22 11:05 Urine Ketones Negative (Negative) 07/28/22 11:05 Urine Blood Neg (Negative) 07/28/22 11:05 Urine Nitrate Negative (Negative) 07/28/22 11:05 Urine Bilirubin Neg (Negative) 07/28/22 11:05 Urine Urobilinogen Norm mg/dL (Negative) 07/28/22 11:05 Ur Leukocyte Esterase Negative (Negative) 07/28/22 11:05 Nasal Influ A H1 2009 PCR Not detected (NOT DETECT) 07/27/22 04:36 Adenovirus (PCR) Not detected (NOT DETECT) 07/27/22 04:36 C. pneumoniae DNA (PCR) Not detected (NOT DETECT) 07/27/22 04:36 Coronavirus 229E (PCR) Not detected (NOT DETECT) 07/27/22 04:36 Human Metapneumovir PCR Not detected (NOT DETECT) 07/27/22 04:36 Influenza A (H1) PCR Not detected (NOT DETECT) 07/27/22 04:36 Influenza A (H3) PCR Not detected (NOT DETECT) 07/27/22 04:36 Influenza Type A (PCR) Not detected (NOT DETECT) 07/27/22 04:36 Influenza Type B (PCR) Not detected (NOT DETECT) 07/27/22 04:36 M. pneumoniae (PCR) Not detected (NOT DETECT) 07/27/22 04:36 Parainfluenza 1 (PCR) Not detected (NOT DETECT) 07/27/22 04:36 Parainfluenza 2 (PCR) Not detected (NOT DETECT) 07/27/22 04:36 Parainfluenza 3 (PCR) Not detected (NOT DETECT) 07/27/22 04:36 Parainfluenza 4 (PCR) Not detected (NOT DETECT) 07/27/22 04:36 RSV Type A (PCR) Not detected (NOT DETECT) 07/27/22 04:36 RSV Type B (PCR) Not detected (NOT DETECT) 07/27/22 04:36 Entero/Rhino (PCR) Not detected (NOT DETECT) 07/27/22 04:36 SARS-CoV-2 (PCR) Not detected (NOT DETECT) 07/27/22 04:36 Vitals Last Vital Signs Temp 98 F 07/29/22 08:00 Pulse 82 07/29/22 08:00 Resp 17 07/29/22 08:00 BP 117/70 07/29/22 08:00 Pulse Ox 96 07/29/22 08:00 O2 Del Method 07/29/22 08:00 O2 Flow Rate 3 07/29/22 08:00 Discharge Plan Discharge Patient Disposition: Home Condition: Stable Prescriptions: New levofloxacin 750 mg Tablet 750 mg PO DAILY@0600 Qty: 5 0RF prednisone 10 mg tablet See Taper PO DIRECTED Qty: 45 0RF Taper: predniSONE 60-10 60 mg Daily for 2 Days and 0 Hour 50 mg Daily for 2 Days and 0 Hour 40 mg Daily for 2 Days and 0 Hour 30 mg Daily for 2 Days and 0 Hour 20 mg Daily for 2 Days and 0 Hour 10 mg Daily for 2 Days and 0 Hour Rx Instructions: see taper instructions ipratropium-albuterol 0.5 mg-3 mg(2.5 mg base)/3 mL solution for nebulization 3 ml inhalation TID PRN (Reason: shortness of breath) Qty: 90 0RF Breo Ellipta 200-25 mcg/dose blister with device 1 inh inhalation Q24H Qty: 60 0RF Spiriva with HandiHaler 18 mcg capsule, w/inhalation device 1 cap inhalation DAILY Qty: 30 0RF Rx Instructions: puncture 1 cap using device; one dose = 2 inhalations Lasix 20 mg tablet 20 mg PO QAM Qty: 30 0RF Discharge Orders: Discharge Order (Routine); Ordered 07/29/22 Ordered By: Lucas Malloy Other Ambulatory Orders: DME: Nebulizer with Neb Kit (Order) Location: None Selected Ordered By: Lucas Malloy DME: Oxygen (Order) Location: None Selected Ordered By: Lucas Malloy Referrals: [facility] [Other] - 08/07/22 9:00 am (Appt. w/ Nan Rodríguez NP) Datar,Ahmet Thomas MD [Physician] - 08/04/22 10:45 am Discharge Diet: Regular Discharge Activity: Resume usual activity and Increase activity as tolerated Patient Instructions: COPD, Furosemide (By mouth), Ipratropium (By breathing), Prednisone (By mouth), Fluticasone (By breathing), Levofloxacin (By mouth), Tiotropium (By breathing), COPD Stoplight, Opioid Safety Activity Restrictions/Additional Instructions: Repeat bmp in 1 week with your pcp. Follow-up with pulmonology on set appointment. Check your Oxygen regularly at home with pulse oximeter. Target level should be more than 90%. Please continue to not smoke. Discharge Attestations Time Spent in Discharge Care*: greater than 30 min Specific Discharge Activities: educating patient, discussing with pcp/other providers, discussing with human services case manager/social workers/dc planners, documenting/other paperwork and evaluating patient/reviewing data Time Spent in Smoking Cessation: more than 10 minutes Status at Discharge: Cognitive status at discharge: cognitively intact, Behavioral status at discharge: cooperative, Functional status at discharge: independent ambulation, Overall status at discharge: patient is progressing back to baseline Quality Metrics Clinical Quality Measures [ No reported AMI, CVA or VTE this stay] Coding Level of Care Code 89708 Total time (in minutes) for Discharge: 50 Diagnoses Respiratory failure with hypoxia and hypercapnia J96.91; J96.92 Acute exacerbation of chronic obstructive airways disease J44.1
[2022-07-29] MEDS: nicotine 14 mg Patch 1 PATCH TRANSDERMA (10:32)
[2022-07-29 12:08] VITALS: O2SAT 85; O2SAT 90
[2022-07-29 14:00] VITALS: PULSE 110; RESP 23; O2SAT 94
[2022-07-29 19:12] VITALS: PULSE 110; RESP 23; O2SAT 94
== END 2022-07-29 19:14 | disposition home or self-care (01) | DRG 190 ==
LOC: ER 06:10 → MEDSURG 06:17
PROVIDERS: Admitting Provider Internal Medicine; Emergency Provider Emergency Medicine; Visit Provider Student in an Organized Health Care Education/Training Program
DX: J44.1 Chronic obstructive pulmonary disease with (acute) exacerbation (principal); J96.91 Respiratory failure, unspecified with hypoxia; J96.92 Respiratory failure, unspecified with hypercapnia; E87.1 Hypo-osmolality and hyponatremia; J84.10 Pulmonary fibrosis, unspecified; Z87.891 Personal history of nicotine dependence; F41.9 Anxiety disorder, unspecified; E78.5 Hyperlipidemia, unspecified; R73.9 Hyperglycemia, unspecified
CPT/HCPCS: 36415; 36600; 71045; 80048; 80053; 80061; 81003; 82607; 82746; 82803; 83036; 83605; 83735; 83880; 84145; 84443; 84484; 85025; 85378; 86140; 86403; 87040; 87070; 87205; 87449; 87486; 87581; 87633; 93005; 93306; 94640; 94664; 94760; 96372; 99285; J1644; J2920; J7040; J7614; J7626; J7644

== ENCOUNTER → 2024-10-13 15:20 | Outpatient (BNVA) | payer MEDICARE, SELFPAY | PROVIDERS: PCP Nurse Practitioner Family; Visit Provider Internal Medicine Cardiovascular Disease | DX: R07.9 Chest pain, unspecified (principal) | CPT/HCPCS: 93005; 99204 ==

== ENCOUNTER 2024-11-09 12:36 | Outpatient (CLI) | payer MEDICARE, SELFPAY ==
[2024-11-09 12:54] VITALS: PULSE 90; RESP 18; O2SAT 95
== END 2024-11-09 12:37 | disposition home or self-care (01) ==
LOC: RT 12:37
PROVIDERS: PCP Nurse Practitioner Family; Visit Provider Family Medicine
DX: R06.09 Other forms of dyspnea (principal); J98.8 Other specified respiratory disorders
CPT/HCPCS: 94060; 94729; J7613

== ENCOUNTER → 2025-03-30 13:43 | Outpatient (BNVA) | payer MEDICARE, SELFPAY | PROVIDERS: PCP Nurse Practitioner Family; Referring Provider Family Medicine; Visit Provider Internal Medicine | DX: J44.9 Chronic obstructive pulmonary disease, unspecified (principal); Z99.81 Dependence on supplemental oxygen; Z87.891 Personal history of nicotine dependence; T78.40XA Allergy, unspecified, initial encounter; X58.XXXA Exposure to other specified factors, initial encounter | CPT/HCPCS: 36415; 82103; 85025; 86003; 99215; Q3014 ==

== ENCOUNTER 2025-04-10 15:06 | Outpatient (CLI) | payer MEDICARE, SELFPAY ==
--- NOTE | 2025-04-10 15:30 | CT_ITS ---
WS: [id number] LDCT LUNG CANCER SCREENING TECHNIQUE: Noncontrast CT of the chest with coronal and sagittal reformatted images. CLINICAL INFORMATION: Lung Screen COMPARISON: None. DLP: 46.10 mGy.cm DIvol: Mean CTDIvol: 0.90 (mGy) All CT scans at [facility] use at least one of these dose optimization techniques: automated exposure control; mA and/or kV adjustment per patient size (includes targeted exams where dose is matched to clinical indication); or iterative reconstruction. FINDINGS: Hyperinflation. Moderate to advanced chronic emphysematous changes. Fibrosis in the lung apices. No suspicious pulmonary parenchymal abnormalities. Aortic calcification. Coronary calcification. Adrenal glands are normal. Partially visualized RIGHT renal cyst measuring 6.9 cm. Adrenal glands are normal. Small esophageal hiatal hernia. Moderate thoracic kyphosis. Ankylosis thoracic spine. Ill-defined possible low-attenuation lesion in the RIGHT hepatic lobe. Recommend further evaluation with contrast-enhanced CT abdomen pelvis. CT/CT lung screening [id number] IMPRESSION: Suggestion of a low-attenuation lesion in the RIGHT hepatic lobe. Recommend fur ther evaluation with contrast-enhanced CT abdomen pelvis. This area is ill-defi adán but measures approximately 3.5 cm. Some of this may be due to beam hardenin g artifact. LUNG-RADS: 2S-Benign Appearance or Behavior with Significant Findings FOLLOW UP: 12 Month: Continue annual screening with LDCT RECOMMEND CONTRAST ENHANCED CT ABDOMEN PELVIS.
== END 2025-04-10 15:07 | disposition home or self-care (01) ==
LOC: RAD 15:08
PROVIDERS: PCP Nurse Practitioner Family; Visit Provider Internal Medicine
DX: Z12.2 Encounter for screening for malignant neoplasm of respiratory organs (principal); Z87.891 Personal history of nicotine dependence; J43.9 Emphysema, unspecified; J84.10 Pulmonary fibrosis, unspecified; I70.0 Atherosclerosis of aorta; I25.10 Atherosclerotic heart disease of native coronary artery without angina pectoris; N28.1 Cyst of kidney, acquired; K44.9 Diaphragmatic hernia without obstruction or gangrene; M40.04 Postural kyphosis, thoracic region; M40.204 Unspecified kyphosis, thoracic region; R93.2 Abnormal findings on diagnostic imaging of liver and biliary tract
CPT/HCPCS: 71271

== ENCOUNTER → 2025-04-17 14:04 | Outpatient (BNVA) | payer MEDICARE, SELFPAY | PROVIDERS: PCP Nurse Practitioner Family; Visit Provider Internal Medicine | DX: J44.9 Chronic obstructive pulmonary disease, unspecified (principal); G47.33 Obstructive sleep apnea (adult) (pediatric); Z99.81 Dependence on supplemental oxygen; Z87.891 Personal history of nicotine dependence; J43.9 Emphysema, unspecified | CPT/HCPCS: 36415; 99214; Q3014 ==

== ENCOUNTER → 2025-05-10 10:49 | Outpatient (BNVA) | payer MEDICARE, SELFPAY | PROVIDERS: PCP Family Medicine; Visit Provider Nurse Practitioner Family | DX: I25.10 Atherosclerotic heart disease of native coronary artery without angina pectoris (principal); R00.0 Tachycardia, unspecified; R20.0 Anesthesia of skin; J96.91 Respiratory failure, unspecified with hypoxia; J96.92 Respiratory failure, unspecified with hypercapnia; R94.31 Abnormal electrocardiogram [ECG] [EKG] | CPT/HCPCS: 36415; 84439; 84443; 84481; 93005; 99214 ==